=== PATIENT | male | born 1990 | race African-American/Black ===

== ENCOUNTER → 2021-06-14 | Outpatient (CLI) | payer OTHER | LOC: SLEEP 20:00 | PROVIDERS: ATTEND Internal Medicine Critical Care Medicine | DX: G47.33 Obstructive sleep apnea (adult) (pediatric) (principal); G47.59 Other parasomnia; G47.11 Idiopathic hypersomnia with long sleep time; Z20.822 Contact with and (suspected) exposure to COVID-19 | CPT/HCPCS: 95810; U0002 ==